=== PATIENT | female | born 1960 | race Hispanic/Latino ===

== ENCOUNTER 2021-04-27 15:29 | Inpatient (IN) | payer OTHER ==
[~2021-04-27] VITALS: Ht 165.1 cm; Wt 53.8 kg
[2021-04-27 17:01] LABS: BASOPHILS % (AUTO) 0.2 % (0.0-5.0); EOSINOPHILS % (AUTO) 1.1 % (0.0-8.0); HEMATOCRIT 33.4 % (36-48); LYMPHOCYTES % (AUTO) 3.6 % (21.0-51.0); MEAN CORPUSCULAR HEMOGLOBIN 31.5 pg (27.0-33.0); MEAN CORPUSCULAR VOLUME 98.2 fL (79-99); MONOCYTES % (AUTO) 6.6 % (3.0-13.0); NEUTROPHILS % (AUTO) 87.4 % (40.0-77.0); PLATELET COUNT (AUTO) 61 K/uL (130-400); RED CELL DISTRIBUTION WIDTH 15.9 % (11.0-15.5); WHITE BLOOD COUNT (AUTO) 12.7 K/uL (4.8-10.8)
[2021-04-27 17:19] LABS: INR 1.26 (0.85-1.15); PROTHROMBIN TIME 13.4 SEC (9.6-11.6)
[2021-04-27 17:20] LABS: PARTIAL THROMBOPLASTIN TIME 35.2 SEC (26.3-35.5)
[2021-04-27 17:22] LABS: BILIRUBIN,TOTAL 2.2 mg/dL (0.2-1.0); TOTAL PROTEIN, SERUM 7.4 g/dL (6.0-8.3)
[2021-04-27] MEDS ORDERED: ACETAMINOPHEN 325 MG TAB PO PRN (21:00)
[2021-04-27] MEDS ORDERED: ONDANSETRON 4MG INJ IV PRN (21:00)
[2021-04-27] MEDS ORDERED: FUROSEMIDE 40MG VIAL IVP SCH (21:00)
[2021-04-27] MEDS ORDERED: CEFTRIAXONE 1G VIAL IV SCH (21:00)
[2021-04-27] MEDS: METRONIDAZOLE 500MG/100ML BAG 100 ML IV SCH (22:09)
[2021-04-27] MEDS: INSULIN HUMULIN R 100 UNIT/ML 3ML SQ SCH (22:25)
[2021-04-27 23:36] LABS: INR 1.23 (0.85-1.15); PROTHROMBIN TIME 13.2 SEC (9.6-11.6)
[2021-04-27 23:38] LABS: PARTIAL THROMBOPLASTIN TIME 36.9 SEC (26.3-35.5)
[2021-04-27] MEDS ORDERED: PROP10TA10 PO (23:39)
[2021-04-27] MEDS ORDERED: PANT20TA18 PO (23:39)
[2021-04-27] MEDS ORDERED: RIFA550T PO (23:39)
[2021-04-27] MEDS ORDERED: MIDO10TA PO (23:39)
[2021-04-27] MEDS ORDERED: SERT-440 PO (23:39)
[2021-04-27] MEDS ORDERED: SPIR50TA5 PO (23:39)
[2021-04-27] MEDS ORDERED: FOLI0.8T21 PO (23:39)
[2021-04-27] MEDS ORDERED: VITAD50000 PO (23:39)
[2021-04-27] MEDS ORDERED: METO10TA3 PO (23:39)
[2021-04-27] MEDS ORDERED: ELTR50TA PO (23:39)
[2021-04-28] VITALS (24 sets, daily range): BP systolic 93–132; BP diastolic 42–79
[2021-04-28 02:58] LABS: BASOPHILS % (AUTO) 0.2 % (0.0-5.0); HEMATOCRIT 29.8 % (36-48); LYMPHOCYTES % (AUTO) 4.1 % (21.0-51.0); MEAN CORPUSCULAR HGB CONC 32.2 g/dL (32.0-36.0); MEAN CORPUSCULAR VOLUME 96.1 fL (79-99); MONOCYTES % (AUTO) 7.8 % (3.0-13.0); NEUTROPHILS % (AUTO) 86.1 % (40.0-77.0); PLATELET COUNT (AUTO) 54 K/uL (130-400); RED CELL DISTRIBUTION WIDTH 15.9 % (11.0-15.5); WHITE BLOOD COUNT (AUTO) 12.4 K/uL (4.8-10.8)
[2021-04-28 03:09] LABS: CREATININE 7.5 mg/dL (0.5-1.5); POTASSIUM 4.7 mmol/L (3.5-5.1)
[2021-04-28] MEDS: METRONIDAZOLE 500MG/100ML BAG 100 ML IV SCH ×3 (04:24→21:26)
[2021-04-28] MEDS: INSULIN HUMULIN R 100 UNIT/ML 3ML SQ SCH ×4 (05:43→21:00)
[2021-04-28] MEDS ORDERED: FAMOTIDINE 20MG VIAL IV SCH (09:00)
[2021-04-28] MEDS: ALBUMIN (HUMAN) 25% 200 ML IV SCH ×2 (10:03→10:46)
[2021-04-28 10:28] LABS: APPEARANCE BODY FLUID SLIGHTLY CLOUDY (CLEAR); COLOR,BODY FLUID DARK YELLOW (LT YELLOW); SPECIMENTYPE,BODY FLUID ASCITES
[2021-04-28 10:29] LABS: BODY FLUID RBC 2600 /cu. mm.; BODY FLUID WBC 128 /cu. mm.; TOTAL VOLUME,BODY FLUID 7500 mL
[2021-04-28 11:17] LABS: BF LYMPHOCYTE 16 %; BF MESOTHELIAL 54 %; BF MONOCYTE 16 %
[2021-04-28] MEDS ORDERED: HYDROMORPHONE 0.5 MG SYG (0.5MG/0.5ML) IVP PRN (11:30)
[2021-04-28] MEDS ORDERED: ACETAMINOPHEN 325 MG TAB PO PRN (11:30)
[2021-04-28] MEDS: FLUCONAZOLE 200 MG/NS 100 ML 100 ML IV SCH (11:38)
[2021-04-28] MEDS: SIMETHICONE 80 MG TAB.CHEW PO SCH ×2 (13:55→21:27)
[2021-04-28] MEDS: MIDODRINE HCL 5 MG TABLET PO SCH ×2 (14:00→21:27)
[2021-04-28] MEDS: 0.9%NACL 1000ML 1,000 ML IV PRN (19:25)
[2021-04-28] MEDS ORDERED: HEPARIN 5,000 UNIT VIAL SQ PRN (19:30)
[2021-04-28] MEDS: PANTOPRAZOLE 40 MG/VIAL IVP SCH (21:00)
[2021-04-28] MEDS: METOCLOPRAMIDE 10 MG TABLET PO SCH (21:27)
[2021-04-28] MEDS: RIFAXIMIN 550 MG TABLET PO SCH (21:27)
[2021-04-28] MEDS: PROPRANOLOL HCL 10 MG TAB PO SCH (21:28)
[2021-04-28] MEDS: SPIRONOLACTONE 25 MG TAB PO SCH (21:28)
[2021-04-28] MEDS: CEFTRIAXONE 2GM VIAL IVP SCH (21:30)
[2021-04-29] VITALS (21 sets, daily range): BP systolic 13–123; BP diastolic 37–49
[2021-04-29] MEDS: 0.9%NACL 1000ML 1,000 ML IV PRN ×2 (00:18→15:06)
[2021-04-29] MEDS: METRONIDAZOLE 500MG/100ML BAG 100 ML IV SCH ×2 (04:50→12:56)
[2021-04-29 05:12] LABS: BASOPHILS % (AUTO) 0.2 % (0.0-5.0); EOSINOPHILS % (AUTO) 3.4 % (0.0-8.0); HEMATOCRIT 29.3 % (36-48); LYMPHOCYTES % (AUTO) 6.5 % (21.0-51.0); MEAN CORPUSCULAR HEMOGLOBIN 31.1 pg (27.0-33.0); MEAN CORPUSCULAR HGB CONC 32.1 g/dL (32.0-36.0); MONOCYTES % (AUTO) 6.7 % (3.0-13.0); NEUTROPHILS % (AUTO) 82.5 % (40.0-77.0); PLATELET COUNT (AUTO) 53 K/uL (130-400); RED BLOOD CELL COUNT(AUTO) 3.02 MIL/uL (4.00-5.50); RED CELL DISTRIBUTION WIDTH 15.8 % (11.0-15.5); WHITE BLOOD COUNT (AUTO) 8.6 K/uL (4.8-10.8)
[2021-04-29 05:25] LABS: INR 1.42 (0.85-1.15)
[2021-04-29 05:26] LABS: ALBUMIN 2.3 g/dL (3.5-5.0); BILIRUBIN,TOTAL 2.1 mg/dL (0.2-1.0); CREATININE 5.2 mg/dL (0.5-1.5); PARTIAL THROMBOPLASTIN TIME 43.8 SEC (26.3-35.5)
[2021-04-29] MEDS: INSULIN HUMULIN R 100 UNIT/ML 3ML SQ SCH ×3 (05:55→20:40)
[2021-04-29] MEDS: PROMACTA 50 MG PO SCH (09:00)
[2021-04-29] MEDS: **HM** VIT D3 1000 UNITS PO SCH (09:00)
[2021-04-29] MEDS: Vitamin B Complex/Vit C/Folic Acid PO SCH ×2 (09:00→10:05)
[2021-04-29] MEDS: SIMETHICONE 80 MG TAB.CHEW PO SCH ×4 (10:05→21:00)
[2021-04-29] MEDS: PROPRANOLOL HCL 10 MG TAB PO SCH ×2 (10:05→21:01)
[2021-04-29] MEDS: METOCLOPRAMIDE 10 MG TABLET PO SCH ×2 (10:05→21:54)
[2021-04-29] MEDS: SPIRONOLACTONE 25 MG TAB PO SCH ×2 (10:05→21:01)
[2021-04-29] MEDS: RIFAXIMIN 550 MG TABLET PO SCH ×2 (10:05→21:01)
[2021-04-29] MEDS: SERTRALINE HCL 50 MG TABLET PO SCH (10:05)
[2021-04-29] MEDS: FLUCONAZOLE 200 MG/NS 100 ML 100 ML IV SCH (10:06)
[2021-04-29] MEDS: PANTOPRAZOLE 40 MG/VIAL IVP SCH ×2 (10:06→21:00)
[2021-04-29] MEDS: MIDODRINE HCL 5 MG TABLET PO SCH ×3 (10:06→21:01)
[2021-04-29] MEDS ORDERED: ALBUMIN (HUMAN) 25% 50 ML IV PRN (16:00)
[2021-04-29] MEDS ORDERED: ALBUMIN (HUMAN) 25% 100 ML IV PRN (16:00)
[2021-04-29] MEDS: CEFTRIAXONE 2GM VIAL IVP SCH (21:00)
[2021-04-30] VITALS: BP 92/48
[2021-04-30 04:00] VITALS: BP 100/46
[2021-04-30 04:51] LABS: HEMATOCRIT 31.4 % (36-48); MEAN CORPUSCULAR HEMOGLOBIN 30.7 pg (27.0-33.0); MEAN CORPUSCULAR HGB CONC 31.2 g/dL (32.0-36.0); MEAN CORPUSCULAR VOLUME 98.4 fL (79-99); RED BLOOD CELL COUNT(AUTO) 3.19 MIL/uL (4.00-5.50); RED CELL DISTRIBUTION WIDTH 15.9 % (11.0-15.5); WHITE BLOOD COUNT (AUTO) 8.7 K/uL (4.8-10.8)
[2021-04-30 05:06] LABS: CREATININE 3.8 mg/dL (0.5-1.5); POTASSIUM 3.4 mmol/L (3.5-5.1)
[2021-04-30] MEDS: INSULIN HUMULIN R 100 UNIT/ML 3ML SQ SCH ×3 (06:01→16:31)
[2021-04-30 08:00] VITALS: BP 107/33
[2021-04-30 08:15] LABS: HEPATITIS Bs ANTIGEN SCREEN P Negative (Negative)
[2021-04-30] MEDS: MIDODRINE HCL 5 MG TABLET PO SCH ×2 (08:19→15:09)
[2021-04-30] MEDS: PANTOPRAZOLE 40 MG/VIAL IVP SCH (08:19)
[2021-04-30] MEDS: RIFAXIMIN 550 MG TABLET PO SCH (08:20)
[2021-04-30] MEDS: SERTRALINE HCL 50 MG TABLET PO SCH (08:20)
[2021-04-30] MEDS: METOCLOPRAMIDE 10 MG TABLET PO SCH (08:20)
[2021-04-30] MEDS: PROPRANOLOL HCL 10 MG TAB PO SCH (08:20)
[2021-04-30] MEDS: SPIRONOLACTONE 25 MG TAB PO SCH (08:20)
[2021-04-30] MEDS: **HM** VIT D3 1000 UNITS PO SCH (08:21)
[2021-04-30] MEDS: PROMACTA 50 MG PO SCH (08:21)
[2021-04-30] MEDS: Vitamin B Complex/Vit C/Folic Acid PO SCH ×2 (09:00)
[2021-04-30] MEDS: SIMETHICONE 80 MG TAB.CHEW PO SCH ×2 (09:15→13:00)
[2021-04-30 11:46] VITALS: BP 91/41
[2021-04-30 16:00] VITALS: BP 111/46
== END 2021-04-30 18:30 | disposition home or self-care (01) | DRG 432 ==
LOC: EDH 15:29 → EDHIP 20:53 → OBSVTOIN 20:53 → 3CH 04-28 00:07
PROVIDERS: ADMIT Internal Medicine Pulmonary Disease; ATTEND Internal Medicine Pulmonary Disease
PROC: 0W9G3ZZ Drainage of Peritoneal Cavity, Percutaneous Approach (ICD-10-PCS; principal; 2021-04-28)
PROC: 5A1D70Z Performance of Urinary Filtration, Intermittent, Less than 6 Hours Per Day (ICD-10-PCS; 2021-04-29)
DX: K74.60 Unspecified cirrhosis of liver (principal); N18.6 End stage renal disease; I12.0 Hypertensive chronic kidney disease with stage 5 chronic kidney disease or end stage renal disease; R18.8 Other ascites; J98.11 Atelectasis; E87.1 Hypo-osmolality and hyponatremia; E87.70 Fluid overload, unspecified; E11.22 Type 2 diabetes mellitus with diabetic chronic kidney disease; D72.829 Elevated white blood cell count, unspecified; D69.6 Thrombocytopenia, unspecified; E11.65 Type 2 diabetes mellitus with hyperglycemia; E11.51 Type 2 diabetes mellitus with diabetic peripheral angiopathy without gangrene; E78.5 Hyperlipidemia, unspecified; K80.20 Calculus of gallbladder without cholecystitis without obstruction; E78.00 Pure hypercholesterolemia, unspecified; R16.1 Splenomegaly, not elsewhere classified; D64.9 Anemia, unspecified; Z99.2 Dependence on renal dialysis; Z91.15 Patient's noncompliance with renal dialysis
CPT/HCPCS: 36415; 49083; 71045; 74176; 76705; 80048; 80053; 82140; 82150; 82550; 82948; 83605; 83690; 84157; 85025; 85027; 85610; 85730; 86704; 86706; 87046; 87071; 87205; 87324; 87340; 89051; 90935; 93005; 96365; 97039; C1729; C9113; G0378; J0696; J1450; J1644; J1815; J1940; J3490; P9046